=== PATIENT | male | born 1960 | race Caucasian/White ===

== ENCOUNTER 2017-07-15 17:09 | Emergency (ER) | payer BC ==
[~2017-07-15] VITALS: Ht 175.3 cm; Wt 66.0 kg
[2017-07-15 17:12] VITALS: TEMP 36.6; Ht 175.3 cm; Wt 66.0 kg
[2017-07-15] MEDS ORDERED: FENTANYL CITRATE INJ 50 MCG/1 ML 2 ML VIAL IV STA (17:43)
[2017-07-15] MEDS ORDERED: SODIUM CHLORIDE 0.9% 1000ML 1,000 ML IV STA (17:43)
[2017-07-15] MEDS ORDERED: ONDANSETRON INJ 2 MG/ML 2 ML VIAL IV STA (17:43)
[2017-07-15] MEDS ORDERED: KETOROLAC TROMETHAMINE 30 MG/ML VIAL IV STA (17:43)
[2017-07-15 17:59] LABS: BASO % 0.2 %; BASO ABS # 0.03 K/uL (0-0.2); EOS % 1.2 %; HEMATOCRIT 43.9 % (42-52); HEMOGLOBIN 15.2 g/dL (14.0-18.0); IG# 0.05 K/uL (0.00-0.02); LYMPH % 7.5 %; LYMPH ABS # 1.22 K/uL (1.2-3.4); MEAN CELL VOLUME 90.1 fL (80-100); MEAN CORPUSCULAR HEMOGLOBIN 31.2 pg (25-34); MEAN CORPUSCULAR HGB CONC 34.6 g/dl (32-36); MEAN PLATELET VOLUME 9.5 fL (7.4-10.4); MONO % 7.8 %; MONO ABS # 1.26 K/uL (0.11-0.59); NEUT ABS # 13.41 K/uL (1.4-6.5); PLATELET COUNT 239 K/uL (130-400); RED CELL DISTRIBUTION WIDTH CV 12.6 % (11.5-14.5); RED CELL DISTRIBUTION WIDTH SD 41.3 fL (36.4-46.3); WHITE BLOOD COUNT 16.17 K/uL (4.8-10.8)
[2017-07-15 18:18] LABS: ALBUMIN 4.2 gm/dl (3.4-5.0); CALCIUM 8.9 mg/dl (8.5-10.1); CREATININE 1.21 mg/dl (0.60-1.40); POTASSIUM 3.7 mmol/L (3.5-5.1)
--- NOTE | 2017-07-15 18:20 | DIAGNOSTIC IMAGING REPORT ---
ABD/PELVIS WITHOUT FOR STONE CLINICAL HISTORY: 56 years-old Male presenting with left flank pain. TECHNIQUE: Multidetector CT of the abdomen and pelvis was performed without the use of intravenous contrast. IV contrast: None. A dose lowering technique was used consistent with the principles of ALARA (as low as reasonably achievable). COMPARISON: None. CT DOSE (mGy.cm): The estimated cumulative dose is 505.72 mGy.cm. FINDINGS: Confidential Secretary topogram: Unremarkable. Lung bases: Lungs and pleural spaces clear. Normal heart size. No pericardial or pleural effusion. Liver: Normal morphology. Normal density. Biliary: No gross biliary ductal dilatation allowing for noncontrast technique. Gallbladder contains gallstones. Pancreas: Normal noncontrast appearance. Spleen: Normal noncontrast appearance. Adrenal glands: Normal noncontrast appearance. Kidneys and ureters: Normal noncontrast appearance of the right kidney. The left kidney is swollen and edematous. Mild perinephric fat stranding on the left. Mild left pelvocaliectasis. No nephrolithiasis. No right hydronephrosis. The left ureter is dilated with mild urothelial thickening. An obstructing 3 mm calculus is evident in the distal left ureter (series 3 image 320). Right ureter normal. Bladder: Incompletely evaluated secondary to underdistention. Pelvic organs: Prostate enlargement likely secondary to benign prostatic hyperplasia. Multiple pelvic phleboliths. Bowel: The patient is status post appendectomy. No bowel obstruction. Peritoneal cavity: No free fluid or intraperitoneal gas. Lymph nodes: No gross lymphadenopathy allowing for noncontrast technique. Vasculature: Atherosclerosis of the normal caliber abdominal aorta. Abdominal wall: Small fat-containing umbilical hernia. Musculoskeletal: Normal. IMPRESSION: 1. Obstructing 3 mm calculus in the distal left ureter with resultant mild left hydroureteronephrosis. No additional renal or ureteral calculi. 2. Prostatomegaly. Electronically signed by: Brody Galan M.D. 07/15/2017 6:18 PM Dictated Date/Time: 07/15/2017 6:12 PM
[2017-07-15 18:21] LABS: TOTAL PROTEIN 7.4 gm/dl (6.4-8.2)
[2017-07-15] MEDS ORDERED: MoRPHine SULFATE 4 MG/ML 1 ML CARP\\VIAL IV STA (18:30)
[2017-07-15] MEDS ORDERED: PERCOCET HOME PACK PO ONE (19:15)
[2017-07-15] MEDS ORDERED: ONDANSETRON HOME PACK 4MG OD TAB PO ONE (19:15)
[2017-07-15] MEDS ORDERED: OXYC-57 PO (19:17)
[2017-07-15] MEDS ORDERED: ONDA4TAB10 SL (19:17)
--- NOTE | 2017-07-15 19:18 | EMERGENCY ROOM VISIT NOTE ---
History Report prepared by Rosieibyuki: Eliezer Rome Under the Supervision of: Chandler CauseyO. First contact with patient: 17:23 Chief Complaint: FLANK PAIN Stated Complaint: LEFT SIDE PAIN History of Present Illness The patient is a 56 year old male who presents to the Emergency Room with complaints of persistent left flank pain since 1100 today. He states the pain is radiating to the front. He denies any nausea, diarrhea, or vomiting. He states the pain feels similar to his appendicitis in the past. He denies any underlying medical problems. He denies any history of kidney stones. He denies any trauma, back pain, or rashes. Source of History: patient Onset: 1100 today Position: other (left flank) Timing: other (persistent) Associated Symptoms: No nausea, No vomiting, No back pain, No diarrhea, No rash Note: Denies any trauma. Review of Systems See HPI for pertinent positives & negatives. A total of 10 systems reviewed and were otherwise negative. Past Medical & Surgical Surgical Problems: (1) H/O eye surgery (2) Hx of appendectomy (3) Hx of tonsillectomy Family History Cancer Diabetes mellitus Heart disease Kidney disease Kidney stones Lung disease Social History Smoking Status: Never Smoker Smokeless Tobacco Use: No Alcohol Use: heavy (2/day) Drug Use: none Marital Status: in relationship Housing Status: lives with significant other Occupation Status: employed Current/Historical Medications Scheduled Ondasetron Odt (Zofran Odt), 4 MG SL Q6H Scheduled PRN Oxycodone/Acetaminophen 5MG/325MG (Percocet 5MG/325MG), 1 TAB PO Q6H PRN for Pain Allergies Coded Allergies: No Known Allergies (Unverified , 07/15/17) Physical Exam Vital Signs Date Time Temp Pulse Resp B/P (MAP) Pulse Ox O2 Delivery O2 Flow Rate FiO2 07/15/17 18:13 74 18 105/66 98 Room Air 07/15/17 17:12 36.6 81 18 120/76 97 Room Air Physical Exam CONSTITUTIONAL/VITAL SIGNS: Reviewed / noted above. GENERAL: Non-toxic in appearance. INTEGUMENTARY: Warm, dry, and [place]roberts. HEAD: Normocephalic. EYES: without scleral icterus or trauma. ENT/OROPHARYNX: clear and moist. LYMPHADENOPATHY/NECK: Is supple without lymphadenopathy or meningismus. RESPIRATORY: Lungs clear and equal. CARDIOVASCULAR: Regular rate and rhythm. GI/ABDOMEN: Soft and mild LLQ tenderness. No organomegaly or pulsatile mass. No rebound or guarding. Normal bowel sounds. EXTREMITIES: Warm and well perfused. BACK: Left flank/CVA tenderness. NEUROLOGICAL: Intact without focal deficits. PSYCHIATRIC: normal affect. MUSCULOSKELETAL: Normally developed with good muscle tone. Medical Decision & Procedures ER Provider Diagnostic Interpretation: Radiology results as stated below per my review and radiologist interpretation: ABD/PELVIS WITHOUT FOR STONE CLINICAL HISTORY: 56 years-old Male presenting with left flank pain. TECHNIQUE: Multidetector CT of the abdomen and pelvis was performed without the use of intravenous contrast. IV contrast: None. A dose lowering technique was used consistent with the principles of ALARA (as low as reasonably achievable). COMPARISON: None. CT DOSE (mGy.cm): The estimated cumulative dose is 505.72 mGy.cm. FINDINGS: Orthopedic Designer topogram: Unremarkable. Lung bases: Lungs and pleural spaces clear. Normal heart size. No pericardial or pleural effusion. Liver: Normal morphology. Normal density. Biliary: No gross biliary ductal dilatation allowing for noncontrast technique. Gallbladder contains gallstones. Pancreas: Normal noncontrast appearance. Spleen: Normal noncontrast appearance. Adrenal glands: Normal noncontrast appearance. Kidneys and ureters: Normal noncontrast appearance of the right kidney. The left kidney is swollen and edematous. Mild perinephric fat stranding on the left. Mild left pelvocaliectasis. No nephrolithiasis. No right hydronephrosis. The left ureter is dilated with mild urothelial thickening. An obstructing 3 mm calculus is evident in the distal left ureter (series 3 image 320). Right ureter normal. Bladder: Incompletely evaluated secondary to underdistention. Pelvic organs: Prostate enlargement likely secondary to benign prostatic hyperplasia. Multiple pelvic phleboliths. Bowel: The patient is status post appendectomy. No bowel obstruction. Peritoneal cavity: No free fluid or intraperitoneal gas. Lymph nodes: No gross lymphadenopathy allowing for noncontrast technique. Vasculature: Atherosclerosis of the normal caliber abdominal aorta. Abdominal wall: Small fat-containing umbilical hernia. Musculoskeletal: Normal. IMPRESSION: 1. Obstructing 3 mm calculus in the distal left ureter with resultant mild left hydroureteronephrosis. No additional renal or ureteral calculi. 2. Prostatomegaly. Electronically signed by: Brody Galan M.D. 07/15/2017 6:18 PM Dictated Date/Time: 07/15/2017 6:12 PM Laboratory Results 07/15/17 17:48 Red Blood Count 4.87, Mean Corpuscular Volume 90.1, Mean Corpuscular Hemoglobin 31.2, Mean Corpuscular Hemoglobin Concent 34.6, Mean Platelet Volume 9.5, Neutrophils (%) (Auto) 83.0, Lymphocytes (%) (Auto) 7.5, Monocytes (%) (Auto) 7.8, Eosinophils (%) (Auto) 1.2, Basophils (%) (Auto) 0.2, Neutrophils # (Auto) 13.41, Lymphocytes # (Auto) 1.22, Monocytes # (Auto) 1.26, Eosinophils # (Auto) 0.20, Basophils # (Auto) 0.03 07/15/17 17:48 Test 07/15/17 17:42 07/15/17 17:48 White Blood Count 16.17 K/uL (4.8-10.8) Red Blood Count 4.87 M/uL (4.7-6.1) Hemoglobin 15.2 g/dL (14.0-18.0) Hematocrit 43.9 % (42-52) Mean Corpuscular Volume 90.1 fL (80-100) Mean Corpuscular Hemoglobin 31.2 pg (25-34) Mean Corpuscular Hemoglobin Concent 34.6 g/dl (32-36) Platelet Count 239 K/uL (130-400) Mean Platelet Volume 9.5 fL (7.4-10.4) Neutrophils (%) (Auto) 83.0 % Lymphocytes (%) (Auto) 7.5 % Monocytes (%) (Auto) 7.8 % Eosinophils (%) (Auto) 1.2 % Basophils (%) (Auto) 0.2 % Neutrophils # (Auto) 13.41 K/uL (1.4-6.5) Lymphocytes # (Auto) 1.22 K/uL (1.2-3.4) Monocytes # (Auto) 1.26 K/uL (0.11-0.59) Eosinophils # (Auto) 0.20 K/uL (0-0.5) Basophils # (Auto) 0.03 K/uL (0-0.2) RDW Standard Deviation 41.3 fL (36.4-46.3) RDW Coefficient of Variation 12.6 % (11.5-14.5) Immature Granulocyte % (Auto) 0.3 % Immature Granulocyte # (Auto) 0.05 K/uL (0.00-0.02) Anion Gap 7.0 mmol/L (3-11) Est Creatinine Clear Calc Drug Dose 65.2 ml/min Estimated GFR () 78.2 Estimated GFR (Non- 67.5 BUN/Creatinine Ratio 15.0 (10-20) Calcium Level 8.9 mg/dl (8.5-10.1) Total Bilirubin 1.3 mg/dl (0.2-1) Direct Bilirubin 0.2 mg/dl (0-0.2) Aspartate Amino Transf (AST/SGOT) 14 U/L (15-37) Alanine Aminotransferase (ALT/SGPT) 19 U/L (12-78) Alkaline Phosphatase 69 U/L (45-117) Total Protein 7.4 gm/dl (6.4-8.2) Albumin 4.2 gm/dl (3.4-5.0) Lipase 87 U/L (73-393) Laboratory results as stated above per my review. Medications Administered Medications (Trade) Dose Ordered Sig/Luisa Route Start Time Stop Time Status Last Admin Dose Admin Sodium Chloride 1,000 ml @ 999 mls/hr Q1H1M STAT IV 07/15/17 17:43 07/15/17 18:43 DC 07/15/17 17:53 999 MLS/HR Fentanyl Citrate (Fentanyl Inj) 100 mcg NOW STAT IV 07/15/17 17:43 07/15/17 17:45 DC 07/15/17 17:53 100 MCG Ondansetron HCl (Zofran Inj) 4 mg NOW STAT IV 07/15/17 17:43 07/15/17 17:45 DC 07/15/17 17:53 4 MG Ketorolac Tromethamine (Toradol Inj) 30 mg NOW STAT IV 07/15/17 17:43 07/15/17 17:46 DC 07/15/17 17:53 30 MG Morphine Sulfate (MoRPHine SULFATE INJ) 4 mg NOW STAT IV 07/15/17 18:30 5/4/18 18:32 DC 07/15/17 18:34 4 MG ED Course 1743: Previous medical records were reviewed. The patient was evaluated in room B5. A complete history and physical examination was performed. 1742: Ordered Toradol 30 mg IV, Zofran 4 mg IV, Fentanyl 100 mcg IV, and Sodium Chloride 1,000 ml @ 999 mls/hr IV 1829: Ordered Morphine Sulfate 4 mg IV 1902: I reassessed the patient at this time. He is feeling better and resting comfortably. I discussed the results and treatment plan with the patient. I answered all pertaining questions that he had. He expressed understanding and verbalized agreement. The patient will be discharged home. 1914: Ordered Zofran 1 homepack PO and Percocet 1 homepack PO Medical Decision Differential considered: pancreatitis, hepatitis, or acute cholecystitis, AAA, UTI, pyelonephritis, kidney stones, appendicitis, diverticulitis, shingles, bowel obstruction mesenteric ischemia, intussusception, hernia, testicular torsion. This is a 56-year-old male who presents to the ED with a chief complaint of left -sided flank pain. Details listed above. The patient has a 3 mm distal ureteral stone with some mild hydronephrosis. CBC revealed a white blood cell count of 16. This is likely pain related. His vital signs are normal. He did have some associated nausea but no vomiting. The patient was treated with IV fentanyl, IV Toradol, IV fluids, IV Zofran and IV morphine. His pain improved significantly while he was here. He was discharged on Percocet and given a home pack of Percocet and Zofran. Urine strainer was provided. Medication Reconcilliation Current Medication List: was personally reviewed by me Blood Pressure Screening Patient's blood pressure: Normal blood pressure Impression Primary Impression: Renal colic Scribe Attestation The scribe's documentation has been prepared under my direction and personally reviewed by me in its entirety. I confirm that the note above accurately reflects all work, treatment, procedures, and medical decision making performed by me. Departure Information Dispostion Home / Self-Care Prescriptions Ondasetron Odt (ZOFRAN ODT) 4 Mg Tab 4 MG SL Q6H for Nausea, #15 TAB Prov: Juan Hand D.O. 07/15/17 Oxycodone/Acetaminophen 5MG/325MG (PERCOCET 5MG/325MG) Tab 1 TAB PO Q6H Y for Pain, #20 TAB Prov: Juan Hand D.O. 07/15/17 Referrals No Doctor, Assigned (PCP) Forms HOME CARE DOCUMENTATION FORM, IMPORTANT VISIT INFORMATION Patient Instructions Kidney Stones, My [facility] Additional Instructions Strain urine for stone. Percocet as prescribed. No driving within 6 hours of use. Do not take additional Tylenol while taking Percocet. Zofran: Allow one tablet to dissolve under the tongue every 6 hours as needed for nausea or vomiting. Return to the emergency department for sentiment worsening. Follow-up with your doctor for recheck if symptoms persist more than 3 days.
[2017-07-15 19:37] VITALS: BP 111/74; PULSE 75; O2SAT 99
== END 2017-07-15 19:38 | disposition home or self-care (01) ==
LOC: C.EDB 17:12
DX: N23 Unspecified renal colic (principal); N20.1 Calculus of ureter